=== PATIENT | female | born 1995 | race Caucasian/White ===

== ENCOUNTER 2024-09-20 18:26 | Inpatient (IN) | payer OTHER ==
[2024-09-20] MEDS ORDERED: Calcium Carbonate 500 MG Tab.Chew PO PRN (19:23)
[2024-09-20] MEDS ORDERED: Ondansetron 4 MG/2 ML SDV IVPUSH PRN (19:23)
[2024-09-20] MEDS ORDERED: Acetaminophen 325 MG Tab PO PRN (19:23)
[2024-09-20] MEDS ORDERED: Lidocaine 1% 50 ML MDV INJECT PRN (19:23)
[2024-09-20] MEDS ORDERED: Nalbuphine 10 MG/1 ML Vial IVPUSH PRN (19:23)
[2024-09-20 19:50] LABS: BASOPHILS PERCENT AUTO 0.4 % (0.0-1.0); EOSINOPHILS ABSOLUTE AUTO 0.1 K/mm3 (0.0-0.4); EOSINOPHILS PERCENT AUTO 1.5 % (0.0-6.0); HEMATOCRIT 36.2 % (37.0-47.0); IMMATURE GRAN ABSOLUTE AUTO 0.02 K/mm3 (0.00-0.05); IMMATURE GRAN PERCENT AUTO 0.2 % (0.0-0.4); LYMPHOCYTES ABSOLUTE AUTO 1.8 K/mm3 (1.0-4.8); LYMPHOCYTES PERCENT AUTO 22.1 % (24.0-44.0); MEAN CORPUSCULAR HEMOGLOBIN 28.2 pg (28.0-32.0); MEAN CORPUSCULAR HGB CONC 33.1 g/dl (32.0-36.0); MEAN CORPUSCULAR VOLUME 85.2 fl (83.0-99.0); MEAN PLATELET VOLUME 12.3 fl (9.4-12.3); MONOCYTES ABSOLUTE AUTO 0.6 K/mm3 (0.0-0.8); MONOCYTES PERCENT AUTO 7.7 % (0.0-8.0); NEUTROPHILS ABSOLUTE AUTO 5.5 K/mm3 (1.8-7.7); NEUTROPHILS PERCENT AUTO 68.1 % (41.0-71.0); PLATELET COUNT,PLT 158 K/mm3 (150-400); RED BLOOD CELL COUNT 4.25 M/mm3 (4.10-5.30)
[2024-09-20] MEDS: Lactated Ringers 1,000 ML IV SCH (20:43)
[2024-09-20] MEDS: Oxytocin/0.9 % Sodium Chloride 30 UNIT/500 ML BAG IV SCH (20:45)
[2024-09-21] MEDS ORDERED: diphenhydrAMINE 50 MG/ML SDV IVPUSH PRN (02:26)
[2024-09-21] MEDS ORDERED: ePHEDrine 50 MG/ML SDV IVPUSH PRN (02:26)
[2024-09-21] MEDS: Bupivacaine/fentaNYL/NS 100 ML Bag EPIDUR PRN (02:33)
[2024-09-21] MEDS ORDERED: Tranexamic Acid 1,000 MG/10 ML Vial ONE (12:19)
[2024-09-21] MEDS: Methylergonovine 0.2 MG/1 ML Amp IM STA (12:36)
[2024-09-21] MEDS: Misoprostol 200 MCG Tab BUCCAL STA (12:39)
[2024-09-21] MEDS: Oxytocin/0.9 % Sodium Chloride 30 UNIT/500 ML BAG IV SCH (12:49)
[2024-09-21] MEDS: ceFAZolin 2 GM Vial IVPUSH ONE (13:38)
[2024-09-21] MEDS ORDERED: Acetaminophen 325 MG Tab PO PRN (14:36)
[2024-09-21] MEDS: Witch Hazel Medicated Pads 40/Jar TOP PRN (15:25)
[2024-09-21] MEDS: Benzocaine/Menthol 20%-0.5% Spray 78 GM Cannister TOP PRN (15:26)
[2024-09-21] MEDS: Ibuprofen 600 MG Tab PO SCH (19:45)
[2024-09-21] MEDS: Water For Injection, Sterile 20 ML ONE (19:45)
[2024-09-22] MEDS: Ibuprofen 600 MG Tab PO SCH (20:11)
[2024-09-22] MEDS: Docusate Sodium 100 MG Cap PO PRN (20:14)
[2024-09-23] MEDS: Ibuprofen 600 MG Tab PO SCH (02:14)
== END 2024-09-23 14:30 | disposition home or self-care (01) | DRG 806 ==
LOC: JD.OBCHECK 18:26 → JD.OB 19:23 → OBSVTOIN 09-21 12:10 → JD.OB 09-21 12:11
PROVIDERS: ADMIT Obstetrics & Gynecology; ATTEND Obstetrics & Gynecology
PROC: 10D07Z3 Extraction of Products of Conception, Low Forceps, Via Natural or Artificial Opening (ICD-10-PCS; principal; 2024-09-21)
PROC: 0KQM0ZZ Repair Perineum Muscle, Open Approach (ICD-10-PCS; 2024-09-21)
PROC: 3E0R3BZ Introduction of Anesthetic Agent into Spinal Canal, Percutaneous Approach (ICD-10-PCS; 2024-09-21)
PROC: 00HU33Z Insertion of Infusion Device into Spinal Canal, Percutaneous Approach (ICD-10-PCS; 2024-09-21)
DX: O42.02 Full-term premature rupture of membranes, onset of labor within 24 hours of rupture (principal); O72.0 Third-stage hemorrhage; Z37.0 Single live birth; O72.1 Other immediate postpartum hemorrhage; O48.0 Post-term pregnancy; O70.1 Second degree perineal laceration during delivery; O77.0 Labor and delivery complicated by meconium in amniotic fluid; O63.1 Prolonged second stage (of labor); Z3A.40 40 weeks gestation of pregnancy
CPT/HCPCS: 36415; 51701; 51702; 59025; 59409; 84112; 85025; 86592; 86850; 86900; 86901; A9270-GY; C1758; J0690; J2210; J3490; J7120; J7999